=== PATIENT | male | born 1995 | race Hispanic/Latino ===

== ENCOUNTER 2017-10-09 14:07 | Emergency (ER) | payer SELFPAY ==
--- NOTE | 2017-10-09 15:21 | EDPHYS ---
Physician Documentation [facility] Name: Geronimo James Age: 22 yrs Sex: Male : 1995 Arrival Date: 10/09/2017 Time: 14:14 Bed 18 Private MD: ED Physician Stewart Villasenor HPI: 10/09 15:08 This 22 yrs old Male presents to ER via Ambulatory with complaints of Heat jmm Exposure. 15:08 The patient complains of pain to the forehead. The patient describes the headache as jmm aching. Onset: The symptoms/episode began/occurred gradually, today. Associated signs and symptoms: Pertinent positives: vomiting. This is a 22 year old male with no chronic medical conditions that presents to the ED with a headache while vomiting while working outside earlier today. Patient states he is here is because he is required work clearance. Patient states his headache is currently resolved. Patient denies fever, neck stiffness, or abdominal pain. . Historical: - Allergies: 14:22 No Known Allergies; aj1 - Home Meds: 14:22 None [Active]; aj1 - PMHx: 14:22 None; aj1 - PSHx: 14:22 None; aj1 - Immunization history:: Flu vaccine is not up to date. - Social history:: Smoking status: Patient uses tobacco products, smokes one-half pack cigarettes per day. - Ebola Screening: : Patient denies travel to an Ebola-affected area in the 21 days before illness onset. ROS: 15:13 Constitutional: Negative for fever, chills, and weight loss, Cardiovascular: Negative jmm for chest pain, palpitations, and edema, Respiratory: Negative for shortness of breath, cough, wheezing, and pleuritic chest pain, Back: Negative for injury and pain. 15:13 Neuro: Positive for headache. 15:13 All other systems are negative. Exam: 15:13 Head/Face: atraumatic. Chest/axilla: Normal chest wall appearance and motion. jmm Cardiovascular: Regular rate and rhythm. No edema appreciated Respiratory: Normal respirations, no respiratory distress appreciated Abdomen/GI: Non distended, soft 15:13 Constitutional: The patient appears in no acute distress, alert, awake. 15:13 Abdomen/GI: Inspection: Palpation: abdomen is soft and non-tender, in all quadrants. 15:13 Back: CVA tenderness, is absent, is noted bilaterally. 15:13 Musculoskeletal/extremity: ROM: intact in all extremities. 15:13 Skin: Appearance: Color: normal in color. 15:13 Neuro: Orientation: is normal, Mentation: is normal, Memory: is normal, Gait: is steady. 15:13 Psych: Behavior/mood is pleasant, cooperative. Vital Signs: 14:22 BP 139 / 76; Pulse 79; Resp 18; Temp 98.0(TE); Pulse Ox 97% on R/A; Weight 68.04 kg; aj1 Pain 610; MDM: 14:32 Patient medically screened. [facility] 15:16 Data reviewed: vital signs, nurses notes. Counseling: I had a detailed discussion with kaila the patient and/or guardian regarding: the historical points, exam findings, and any diagnostic results supporting the discharge/admit diagnosis, the need for outpatient follow up, to return to the emergency department if symptoms worsen or persist or if there are any questions or concerns that arise at home. 15:16 ED course: Patient advised of the need for laboratory studies to evaluate for m rhabdomyolosis, kidney function. Patient refused and advised of the need to return if symptoms worsened. Patient understood. . Administered Medications: 15:33 Not Given (Patient Refused): NS 0.9% 1000 ml IV at 1 bolus Per protocol; 1000 mL bolus em Disposition: 10/09/17 15:20 Discharged to Home. Impression: Headache, Vomiting. - Condition is Stable. - Discharge Instructions: General Headache Without Cause, Rhabdomyolysis, Heat Exhaustion Information, Vomiting, Adult. - Medication Reconciliation Form, Thank You Letter, Antibiotic Education, Prescription Opioid Use form. - Follow up: Private Physician; When: 2 - 3 days; Reason: Continuance of care. Addendum: 10/12/2017 10:21 Co-signature as Attending Physician, Stewart Villasenor MD I agree with the assessment and c hui plan of care. Signatures: Dispatcher [employer] Neida Vail RN RN aj1 Stewart Villasenor MD MD cha Mickail, Joel, PA PA Miles Contreras, [employer]IN PLANT OPERATOR PARAFFIN [employer]ANT OPERATOR em Corrections: (The following items were deleted from the chart) 10/09 15:33 15:01 IV Saline Lock ordered. [facility] em : 15:01 Labs collected and sent ordered. [facility] em 15:34 15:01 Urine Dipstick-Ancillary ordered. [facility] em 15:35 15:02 AMYLASE, SERUM+C.LAB.BRZ ordered. [facility] EDMS 15:35 15:02 BASIC METABOLIC PANEL+C.LAB.BRZ ordered. [facility] EDMS 15:35 15:02 Creatinine for Radiology+C.LAB.BRZ ordered. [facility] EDMS 15:35 15:02 HEPATIC FUNCTION+C.LAB.BRZ ordered. [facility] EDMS 15:35 15:02 LIPASE+C.LAB.BRZ ordered. [facility] EDMS 15:35 15:02 CREATINE PHOSPHOKINASE+C.LAB.BRZ ordered. [facility] EDMS 15:36 15:02 CBC+H.LAB.BRZ ordered. [facility] EDMS 15:36 15:02 UA MICROSCOPIC+U.LAB.BRZ ordered. [facility] EDMS 15:39 15:20 10/09/2017 15:20 Discharged to Home. Impression: Headache; Vomiting. Condition is em Stable. Forms are Medication Reconciliation Form, Thank You Letter, Antibiotic Education, Prescription Opioid Use. Follow up: Private Physician; When: 2 - 3 days; Reason: Continuance of care. kaila
--- NOTE | 2017-10-09 15:21 | ER ---
Nurse's Notes [facility] Name: Geronimo James Age: 22 yrs Sex: Male : 1995 Arrival Date: 10/09/2017 Time: 14:14 Bed 18 Private MD: Diagnosis: Headache;Vomiting Presentation: 10/09 14:19 Presenting complaint: Patient states: He was working in the heat and then started to aj1 have a headache at 9:00 this morning. His headache has not gotten any better. Denies dizziness, syncope, chest pain, shortness of breath. Transition of care: patient was not received from another setting of care. Onset of symptoms was October 09, 2017 at 09:00. Risk Assessment: Do you want to hurt yourself or someone else? Patient reports no desire to harm self or others. Initial Sepsis Screen: Does the patient meet any 2 criteria? No. Patient's initial sepsis screen is negative. Does the patient have a suspected source of infection? No. Patient's initial sepsis screen is negative. Care prior to arrival: None. 14:19 Method Of Arrival: Ambulatory [facility] 14:19 Acuity: REOS 4 aj1 Triage Assessment: 14:22 General: Appears in no apparent distress. comfortable, Behavior is calm, cooperative, aj1 appropriate for age. Pain: Complains of pain in forehead Pain currently is 6 out of 10 on a pain scale. Neuro: Level of Consciousness is awake, alert, obeys commands, Oriented to person, place, time, situation, Moves all extremities. Full function Gait is steady, Speech is normal, Facial symmetry appears normal, Reports headache Denies dizziness. Cardiovascular: Patient's skin is warm and dry. Respiratory: Airway is patent Respiratory effort is even, unlabored, Respiratory pattern is regular, symmetrical. Derm: Skin is pink, warm \T\ dry. normal. Historical: - Allergies: 14:22 No Known Allergies; aj1 - Home Meds: 14:22 None [Active]; aj1 - PMHx: 14:22 None; aj1 - PSHx: 14:22 None; aj1 - Immunization history:: Flu vaccine is not up to date. - Social history:: Smoking status: Patient uses tobacco products, smokes one-half pack cigarettes per day. - Ebola Screening: : Patient denies travel to an Ebola-affected area in the 21 days before illness onset. Screenin:35 Abuse screen: Denies threats or abuse. Nutritional screening: No deficits noted. em Tuberculosis screening: No symptoms or risk factors identified. Fall Risk None identified. Assessment: 14:45 General: Appears in no apparent distress. uncomfortable, Behavior is calm, cooperative, em reports needing only a note saying he was here, headache has resolved. Pain: Denies pain. Neuro: Level of Consciousness is awake, alert, obeys commands, Oriented to person, place, time, situation. Cardiovascular: Capillary refill < 3 seconds Patient's skin is warm and dry. Respiratory: Airway is patent Respiratory effort is even, unlabored, Respiratory pattern is regular, symmetrical. GI: Abdomen is flat, Patient currently denies nausea, vomiting. : No signs and/or symptoms were reported regarding the genitourinary system. EENT: No signs and/or symptoms were reported regarding the EENT system. Derm: Skin is intact, Skin is pink, warm \T\ dry. Musculoskeletal: Range of motion: intact in all extremities. Vital Signs: 14:22 BP 139 / 76; Pulse 79; Resp 18; Temp 98.0(TE); Pulse Ox 97% on R/A; Weight 68.04 kg; aj1 Pain 6/10; ED Course: 14:14 Patient arrived in ED. as 14:22 Triage completed. aj1 14:22 Arm band placed on Patient placed in an exam room. aj1 14:25 David Ruelas PA is PHCP. [facility] 14:25 Stewart Villasenor MD is Attending Physician. [facility] 14:29 Miles Arredondo LVN is Primary Nurse. em 15:35 Patient has correct armband on for positive identification. Bed in low position. Call em light in reach. 15:35 No provider procedures requiring assistance completed. Patient did not have IV access em during this emergency room visit. Administered Medications: 15:33 Not Given (Patient Refused): NS 0.9% 1000 ml IV at 1 bolus Per protocol; 1000 mL bolus em Outcome: 15:20 Discharge ordered by . [facility] 15:35 Discharged to home ambulatory. em 15:35 Condition: good 15:35 Discharge instructions given to patient, Instructed on discharge instructions, follow up and referral plans. Demonstrated understanding of instructions, follow-up care. 15:39 Patient left the ED. em Signatures: Neida Yates, RN RN aj1 David Ruelas PA PA jmm Miles Arredondo, MACHINING MANAGER MACHINING MANAGER Alysa Hernandez as
== END 2017-10-09 15:39 | disposition home or self-care (01) ==
LOC: ER 14:07
DX: R51 Headache (principal); R11.10 Vomiting, unspecified; F17.210 Nicotine dependence, cigarettes, uncomplicated
CPT/HCPCS: 99281